=== PATIENT | male | born 1985 | race Caucasian/White ===

== ENCOUNTER 2017-08-29 11:07 | Emergency (ER) | payer BC, MEDICAID, OTHER ==
[2017-08-29] MEDS ORDERED: Penicillin VK TAB* 250 MG PO ONE (11:48)
[2017-08-29 12:23] LABS: ABS Basophils 0.1 10^3/ul (0-0.2); ABS Eosinophils 0.2 10^3/ul (0-0.6); ABS Lymphocytes 2.8 10^3/ul (1.0-4.8); ABS Monocytes 0.4 10^3/ul (0-0.8); ABS Neutrophils 3.6 10^3/ul (1.5-7.7); ABS Nucleated RBC 0 10^3/ul; Eosinophil % 2.9 % (0-6); Hematocrit 40 % (42-52); Hemoglobin 13.8 g/dl (14.0-18.0); Lymphocyte % 39.8 % (25-47); Mean Corpuscular HGB Conc 35 g/dl (31-36); Mean Corpuscular Hemoglobin 31 pg (27-31); Mean Corpuscular Volume 89 fL (80-94); Mean Platelet Volume 5.9 um3 (7.4-10.4); Nucleated Red Blood Cells % 0; Platelet Count 383 10^3/ul (150-450); Red Blood Count 4.49 10^6/ul (4.0-5.4); Red Cell Distribution Width 14 % (10.5-15); White Blood Count 7.1 10^3/ul (3.5-10.8)
[2017-08-29 12:44] LABS: Urine Appearance Clear; Urine Blood Negative (Negative); Urine Color Yellow; Urine Ketones Negative (Negative); Urine Protein Negative (Negative); Urine Specific Gravity 1.021 (1.010-1.030); Urine Urobilinogen Negative (Negative)
[2017-08-29 12:45] LABS: EGFR Non-African American 94.8 (>60)
[2017-08-29] MEDS ORDERED: Acetaminophen TAB* 325 MG PO ONE (13:25)
--- NOTE | 2017-08-29 18:31 | ED ---
Niraj Warren Jennifer, scribed for Zohaib Parker MD on 08/29/17 at 1154 . Psychiatric Complaint - HPI Summary HPI Summary: The patient is a 32 year old who was brought in from [facility] for depression and anxiety. The patient states hes been coming off heroin, meth, and windy, his brother in June, and his kids were taken away from him, and he doesnt know how to deal with it all. He left detention six days ago and has been trying to get his life together. He reports [facility] wont give him the medications he used to take, including Zoloft, Ritalin, Tenex, and Wellbutrin. He started on Suboxone today. The patient denies SI. - History Of Current Complaint Chief Complaint: EDMentalHealth Time Seen by Provider: 08/29/17 11:16 Hx Obtained From: Patient Onset/Duration: Gradual Onset, Still Present, Worse Since - six days ago, Other - Began heroin at 15 years of age Timing: Constant Severity Initially: Severe Severity Currently: Severe Character: Depressed, Anxious Aggravating Factor(s): Recent Stress - Kids taken away from him, Drug Use Alleviating Factor(s): Medication - Suboxone Related History: Positive For: Drug Abuse Counseling Has Suicidal: Denies: Thoughts, With A Plan, Demonstrates Gesture, Has Prior Attempt(s) Has Homicidal: Denies: Thoughts, With A Plan, Demonstrates Gesture, Has Prior Attempt(s) - Allergies/Home Medications Allergies/Adverse Reactions: Allergies Allergy/AdvReac Type Severity Reaction Status Date / Time No Known Allergies Allergy Verified 04/09/13 18:45 Home Medications: Home Medications Buprenorphine/Naloxone SL TAB* [Suboxone 8-2 mg SL TAB*] 2 tab.sl SL DAILY 08/29 [History Confirmed 08/29/17] Gabapentin CAP(*) [Neurontin 300 CAP(*)] 600 mg PO TID 08/29/17 [History Confirmed 08/29/17] Nicotine GUM* 2 mg PO QID PRN 08/29/17 [History Confirmed 08/29/17] Nicotine PATCH 14 MG/24 HR* 14 mg TRANSDERM DAILY 08/29/17 [History Confirmed ] buPROPion TAB* [Wellbutrin TAB*] 75 mg PO BID 08/29/17 [History Confirmed ] cloNIDine TAB* [Catapres 0.1 MG TAB*] 0.1 mg PO Q6H PRN 08/29/17 [History Confirmed 08/29/17] traZODone TAB* [Desyrel TAB*] 150 mg PO BEDTIME 08/29/17 [History Confirmed 07/14] PMH/Surg Hx/FS Hx/Imm Hx Endocrine/Hematology History: Denies: Hx Diabetes, Hx Thyroid Disease Cardiovascular History: Denies: Hx Congestive Heart Failure, Hx Hypertension Respiratory History: Denies: Hx Asthma, Hx Chronic Obstructive Pulmonary Disease (COPD) GI History: Denies: Hx Ulcer Neurological History: Reports: Other Neuro Impairments/Disorders - bipolar Psychiatric History: Reports: Hx Anxiety, Hx Attention Deficit Hyperactivity Disorder, Hx Depression, Other Psychiatric Issues/Disorders - Hx ODD - Surgical History Surgery Procedure, Year, and Place: Jaw wired. Hx Anesthesia Reactions: No Infectious Disease History: No Infectious Disease History: Denies: Hx Hepatitis, Hx Human Immunodeficiency Virus (HIV), Traveled Outside the [place] in Last 30 Days - Family History Known Family History: Negative: Renal Disease - Social History Substance Use Type: Reports: Heroin, Other - Meth, Windy Review of Systems Negative: Fever Positive: Anxious, Depressed All Other Systems Reviewed And Are Negative: Yes Physical Exam - Summary Physical Exam Summary: Appearance: Well appearing, no pain distress Skin: warm, dry, reflects adequate perfusion, Nicotine patch on left arm Head/face: normal Eyes: pupils mid range ENT: Erosive gingivitus around incisors of lower jaw, moist mucous membranes, normal Neck: supple, non-tender Respiratory: CTA, breath sounds present Cardiovascular: Tachycardic, regular rhythm, pulses symmetrical Abdomen: non-tender, soft Bowel Sounds: present Musculoskeletal: normal, strength/ROM intact Neuro: normal, sensory motor intact, A&Ox3 Triage Information Reviewed: Yes Vital Signs On Initial Exam: Initial Vitals Temp Pulse Resp BP Pulse Ox 99 F 119 16 163/93 94 08/29/17 11:27 08/29/17 11:27 08/29/17 11:27 08/29/17 11:27 08/29/17 11:27 Vital Signs Reviewed: Yes Diagnostics - Vital Signs Vital Signs Temp Pulse Resp BP Pulse Ox 08/29/17 11:27 99 F 119 16 163/93 94 - Laboratory Lab Results: Lab Results 08/29/17 08/29/17 08/29/17 Range/Units 12:02 12:02 12:13 WBC 7.1 (3.5-10.8) 10^3/ul RBC 4.49 (4.0-5.4) 10^6/ul Hgb 13.8 L (14.0-18.0) g/dl Hct 40 L (42-52) % MCV 89 (80-94) fL MCH 31 (27-31) pg MCHC 35 (31-36) g/dl RDW 14 (10.5-15) % Plt Count 383 (150-450) 10^3/ul MPV 5.9 L (7.4-10.4) um3 Neut % (Auto) 50.3 (38-83) % Lymph % (Auto) 39.8 (25-47) % [place] % (Auto) 6.2 (0-7) % Eos % (Auto) 2.9 (0-6) % Baso % (Auto) 0.8 (0-2) % Absolute Neuts (auto) 3.6 (1.5-7.7) 10^3/ul Absolute Lymphs (auto) 2.8 (1.0-4.8) 10^3/ul Absolute Monos (auto) 0.4 (0-0.8) 10^3/ul Absolute Eos (auto) 0.2 (0-0.6) 10^3/ul Absolute Basos (auto) 0.1 (0-0.2) 10^3/ul Absolute Nucleated RBC 0 10^3/ul Nucleated RBC % 0 Sodium (139-145) mmol/L Potassium (3.5-5.0) mmol/L Chloride (101-111) mmol/L Carbon Dioxide (22-32) mmol/L Anion Gap (2-11) mmol/L BUN (6-24) mg/dL Creatinine (0.67-1.17) mg/dL Est GFR ( Amer) (>60) Est GFR (Non-Af Amer) (>60) BUN/Creatinine Ratio (8-20) Glucose (70-100) mg/dL Calcium (8.6-10.3) mg/dL Total Bilirubin (0.2-1.0) mg/dL AST (13-39) U/L ALT (7-52) U/L Alkaline Phosphatase (34-104) U/L Total Protein (6.4-8.9) g/dL Albumin (3.2-5.2) g/dL Globulin (2-4) g/dL Albumin/Globulin Ratio (1-3) TSH (0.34-5.60) mcIU/mL Urine Color Yellow Urine Appearance Clear Urine pH 6.0 (5-9) Ur Specific [place] 1.021 (1.010-1.030) Urine Protein Negative (Negative) Urine Ketones Negative (Negative) Urine Blood Negative (Negative) Urine Nitrate Negative (Negative) Urine Bilirubin Negative (Negative) Urine Urobilinogen Negative (Negative) Ur Leukocyte Esterase Negative (Negative) Urine Glucose Negative (Negative) Urine Ascorbic Acid * A (Negative) Salicylates (<30) mg/dL Urine Opiates Screen None detected (None Detect) Acetaminophen mcg/mL Ur Barbiturates Screen None detected (None Detect) Ur Phencyclidine Scrn None detected (None Detect) Ur Amphetamines Screen None detected (None Detect) U Benzodiazepines Scrn None detected (None Detect) Urine Cocaine Screen None detected (None Detect) U Cannabinoids Screen None detected (None Detect) Serum Alcohol (<10) mg/dL Hepatitis C Antibody (Nonreactive) 08/29/17 08/29/17 Range/Units 12:13 12:13 WBC (3.5-10.8) 10^3/ul RBC (4.0-5.4) 10^6/ul Hgb (14.0-18.0) g/dl Hct (42-52) % MCV (80-94) fL MCH (27-31) pg MCHC (31-36) g/dl RDW (10.5-15) % Plt Count (150-450) 10^3/ul MPV (7.4-10.4) um3 Neut % (Auto) (38-83) % Lymph % (Auto) (25-47) % [place] % (Auto) (0-7) % Eos % (Auto) (0-6) % Baso % (Auto) (0-2) % Absolute Neuts (auto) (1.5-7.7) 10^3/ul Absolute Lymphs (auto) (1.0-4.8) 10^3/ul Absolute Monos (auto) (0-0.8) 10^3/ul Absolute Eos (auto) (0-0.6) 10^3/ul Absolute Basos (auto) (0-0.2) 10^3/ul Absolute Nucleated RBC 10^3/ul Nucleated RBC % Sodium 139 (139-145) mmol/L Potassium 4.9 (3.5-5.0) mmol/L Chloride 105 (101-111) mmol/L Carbon Dioxide 28 (22-32) mmol/L Anion Gap 6 (2-11) mmol/L BUN 20 (6-24) mg/dL Creatinine 0.93 (0.67-1.17) mg/dL Est GFR ( Amer) 121.9 (>60) Est GFR (Non-Af Amer) 94.8 (>60) BUN/Creatinine Ratio 21.5 H (8-20) Glucose 110 H (70-100) mg/dL Calcium 9.6 (8.6-10.3) mg/dL Total Bilirubin 0.40 (0.2-1.0) mg/dL AST 27 (13-39) U/L ALT 46 (7-52) U/L Alkaline Phosphatase 110 H (34-104) U/L Total Protein 7.6 (6.4-8.9) g/dL Albumin 4.6 (3.2-5.2) g/dL Globulin 3.0 (2-4) g/dL Albumin/Globulin Ratio 1.5 (1-3) TSH 4.92 (0.34-5.60) mcIU/mL Urine Color Urine Appearance Urine pH (5-9) Ur Specific [place] (1.010-1.030) Urine Protein (Negative) Urine Ketones (Negative) Urine Blood (Negative) Urine Nitrate (Negative) Urine Bilirubin (Negative) Urine Urobilinogen (Negative) Ur Leukocyte Esterase (Negative) Urine Glucose (Negative) Urine Ascorbic Acid (Negative) Salicylates < 2.50 (<30) mg/dL Urine Opiates Screen (None Detect) Acetaminophen < 15 mcg/mL Ur Barbiturates Screen (None Detect) Ur Phencyclidine Scrn (None Detect) Ur Amphetamines Screen (None Detect) U Benzodiazepines Scrn (None Detect) Urine Cocaine Screen (None Detect) U Cannabinoids Screen (None Detect) Serum Alcohol < 10 (<10) mg/dL Hepatitis C Antibody High reactive A (Nonreactive) Result Diagrams: 08/29/17 12:13 08/29/17 12:13 Lab Statement: Any lab studies that have been ordered have been reviewed, and results considered in the medical decision making process. Course/Dx - Course Course Of Treatment: Patient with polysubstance abuse in the past and recently started on Suboxone. Now in drug/alcohol rehabilitation after being discharged from detention. Multiple adjustment issues including dealing with having his children taken away. Medically cleared here and psychiatric evaluation underway. He will be signed out to oncoming ER physician until disposition is achieved. - Differential Dx/Clinical Impression Differential Diagnosis/HQI/PQRI: Positive: Anxiety, Depression, Other - Adjustment disorder, mood disorder. Negative: Homicidal Ideation, Homicidal Gesture, Suicidal Ideation, Suicidal Gesture Provider Diagnosis: Mood disorder, Adjustment disorder with anxious mood Discharge - Sign-Out/Discharge Documenting (check all that apply): Sign-Out Patient Signing out patient TO: Edwin Su - Discharge Plan Condition: Stable Referrals: Kayleigh Rosario MD [Medical Doctor] - - Billing Disposition and Condition Condition: STABLE The documentation as recorded by the Niraj crow Jennifer accurately reflects the service I personally performed and the decisions made by , Zohaib Parker MD.
[2017-08-29 19:27] VITALS: BP 151/78
--- NOTE | 2017-08-30 03:40 | ED ---
Heraclio Warren Thomas, scribed for Edwin Su MD on 08/29/17 at 1919 . Progress - Progress Note Progress Note: The patient is a sign out from Dr. Parker, pending disposition. Course/Dx - Course Course Of Treatment: The patient will be discharged back to [facility] at the recommendation of Dr. Syed. The evaluators will do the discharge. - Diagnoses Provider Diagnoses: Depression - Provider Notifications Discussed Care Of Patient With: Santos Syed Time Discussed With Above Provider: 19:17 Instructed by Provider To: Other - Dr. Syed, psychiatry, spoke with the evalutors. He recommends discharging the patient to [facility]. Discharge - Sign-Out/Discharge Documenting (check all that apply): Discharge/Admit/Transfer - patient will be discharged back to [facility], Receiving Sign-Out Receiving patient FROM: Zohaib Parker - Discharge Plan Condition: Stable Disposition: PSYCHIATRIC FACILITY-OTHER Referrals: Kayleigh Rosario MD [Medical Doctor] - The documentation as recorded by the Heraclio crow Thomas accurately reflects the service I personally performed and the decisions made by Georges cerrato Abdul, MD.
== END 2017-08-29 19:34 ==
LOC: ED 11:07
DX: F39 Unspecified mood [affective] disorder (principal); F43.22 Adjustment disorder with anxiety; F31.9 Bipolar disorder, unspecified
CPT/HCPCS: 36415; 80053; 80307; 80320; 80329; 81003; 84443; 85025; 86803; 99284; A9270-GY; G0480

== ENCOUNTER 2021-08-23 16:21 | Observation (INO) ==
[2021-08-24 00:37] LABS: ABS Basophils 0.1 10^3/ul (0-0.2); ABS Eosinophils 0.3 10^3/ul (0-0.6); ABS Lymphocytes 2.6 10^3/ul (1.0-4.8); ABS Monocytes 0.6 10^3/ul (0-0.8); ABS Neutrophils 3.1 10^3/ul (1.5-7.7); Eosinophil % 5.2 %; Hematocrit 35 % (42-52); Lymphocyte % 39.3 %; Mean Corpuscular HGB Conc 34 g/dL (31-36); Mean Corpuscular Hemoglobin 30 pg (27-31); Mean Corpuscular Volume 88 fL (80-94); Mean Platelet Volume 6.2 fL (7.4-10.4); Nucleated Red Blood Cells % 0.1; Platelet Count 397 10^3/uL (150-450); Red Blood Count 4.03 10^6 /uL (4.18-5.48); Red Cell Distribution Width 14 % (10-15); White Blood Count 6.7 10^3/uL (3.5-10.8)
[2021-08-24 00:57] LABS: Albumin 3.4 g/dL (3.2-5.2); Albumin/Globulin Ratio 1.1 (1-3); C Reactive Protein 70.71 mg/L (<8.01); Calcium 8.8 mg/dL (8.6-10.3); Globulin 3.2 g/dL (2-4); Potassium 3.9 mmol/L (3.5-5.0); Total Bilirubin 0.2 mg/dL (0.2-1.0); Total Protein 6.6 g/dL (6.4-8.9); eGFR CKD-EPI 121.7 (>60)
[2021-08-24] MEDS ORDERED: Piperacillin/Tazobac ADVAN 3.375 GM in NS 0.9% 100 ml BAG 100 ML IV ONE (01:13)
[2021-08-24] MEDS ORDERED: Vancomycin 1,000 MG in NS 0.9% 250 ml 250 ML IVPB ONE (01:13)
[2021-08-24] MEDS ORDERED: Magnesium Hydroxide LIQ 30 ML UDC PO PRN (04:47)
[2021-08-24] MEDS ORDERED: Polyethylene Glycol 3350 17 GM PACKET PO PRN (04:47)
[2021-08-24] MEDS ORDERED: Senna TAB 8.6 mg TAB PO PRN (04:47)
[2021-08-24 07:33] LABS: HIV 4th Generation Nonreactive (Nonreactive)
[2021-08-24] MEDS ORDERED: cefTRIAXone 1 gm/50 mL D5W 1 GM/50 ML BAG IV SCH (08:00)
[2021-08-24] MEDS ORDERED: cefTRIAXone 1 GM Q24H (Pharmacy Admix) IVPB SCH (08:00)
[2021-08-24] MEDS ORDERED: Vancomycin per Pharmacy 1 EA NOTE FOLLOW UP SCH (09:00)
[2021-08-24] MEDS: Enoxaparin 40 MG/0.4 ML SYR SUBCUT SCH (10:04)
[2021-08-24] MEDS: Polyethylene Glycol 3350 17 GM PACKET PO SCH (10:28)
[2021-08-24] MEDS: Vancomycin 1,250 MG in NS 0.9% 250 ml 250 ML IVPB SCH (17:49)
[2021-08-24] MEDS ORDERED: Senna TAB 8.6 mg TAB PO SCH (21:00)
[2021-08-25] MEDS: Nicotine GUM 4MG FRUIT FLAVOR PO PRN ×2 (05:59→09:35)
[2021-08-25] MEDS: Vancomycin 1,250 MG in NS 0.9% 250 ml 250 ML IVPB SCH (05:59)
[2021-08-25] MEDS ORDERED: Nicotine PATCH 21 MG/24 HR PATCH TRANSDERM SCH (08:00)
[2021-08-25] MEDS: Enoxaparin 40 MG/0.4 ML SYR SUBCUT SCH ×2 (09:30→09:38)
[2021-08-25] MEDS: Polyethylene Glycol 3350 17 GM PACKET PO SCH (09:38)
[2021-08-25 09:39] LABS: Hematocrit 36 % (42-52); Hemoglobin 11.9 g/dL (14.0-18.0); Mean Corpuscular HGB Conc 33 g/dL (31-36); Mean Corpuscular Hemoglobin 29 pg (27-31); Mean Corpuscular Volume 88 fL (80-94); Mean Platelet Volume 6.1 fL (7.4-10.4); Platelet Count 407 10^3/uL (150-450); Red Blood Count 4.12 10^6 /uL (4.18-5.48); Red Cell Distribution Width 14 % (10-15); White Blood Count 6.3 10^3/uL (3.5-10.8)
[2021-08-25 10:26] LABS: Calcium 8.8 mg/dL (8.6-10.3); Potassium 4.6 mmol/L (3.5-5.0); eGFR CKD-EPI 119.7 (>60)
[2021-08-25 10:44] LABS: Ferritin 53.3 ng/mL (24-336)
[2021-08-25 11:03] VITALS: BP 116/62
[2021-08-26] MEDS ORDERED: Vancomycin Trough Check NOTE FOLLOW UP ONE (05:30)
== END 2021-08-25 12:20 | disposition home or self-care (01) ==
LOC: ED 16:21 → EDHOLD 16:21 → SUATTDRO 08-24 03:31 → MED 08-24 08:33
PROVIDERS: ADMIT Internal Medicine; ATTEND Internal Medicine

== ENCOUNTER 2022-02-11 22:52 | Observation (INO) ==
[2022-02-12 01:26] LABS: ABS Basophils 0.1 10^3/ul (0-0.2); ABS Eosinophils 0.3 10^3/ul (0-0.6); ABS Lymphocytes 2.6 10^3/ul (1.0-4.8); ABS Monocytes 0.7 10^3/ul (0-0.8); ABS Neutrophils 5.4 10^3/ul (1.5-7.7); Eosinophil % 3.8 %; Hematocrit 31 % (42-52); Hemoglobin 10.2 g/dL (14.0-18.0); Lymphocyte % 28.4 %; Mean Corpuscular HGB Conc 34 g/dL (31-36); Mean Corpuscular Hemoglobin 28 pg (27-31); Mean Corpuscular Volume 84 fL (80-94); Mean Platelet Volume 5.9 fL (7.4-10.4); Platelet Count 421 10^3/uL (150-450); Red Blood Count 3.62 10^6 /uL (4.18-5.48); Red Cell Distribution Width 14 % (10-15); White Blood Count 9.1 10^3/uL (3.5-10.8)
[2022-02-12 01:35] LABS: Activated Partial Thrombo Time 36.7 seconds (26.0-38.0); INR 1.02 (0.89-1.11)
[2022-02-12 02:08] LABS: Albumin 3.3 g/dL (3.2-5.2); Albumin/Globulin Ratio 0.8 (1-3); C Reactive Protein 65.82 mg/L (<8.01); Calcium 8.5 mg/dL (8.6-10.3); Globulin 3.9 g/dL (2-4); Potassium 3.5 mmol/L (3.5-5.0); Total Bilirubin 0.4 mg/dL (0.2-1.0); Total Protein 7.2 g/dL (6.4-8.9); eGFR CKD-EPI 119.5 (>60)
[2022-02-12 02:54] LABS: High Sensitivity Troponin 1 Hr < 3 pg/mL (<20)
[2022-02-12] MEDS ORDERED: Vancomycin 1,250 MG in NS 0.9% 250 ml 250 ML IVPB ONE (03:11)
[2022-02-12] MEDS ORDERED: Cefepime 2 GM in Dextrose 2 GM/50 ML BAG IV ONE (03:13)
[2022-02-12] MEDS ORDERED: NS 0.9% 1000 ml BAG 1,000 ML IV SCH (03:15)
[2022-02-12] MEDS ORDERED: Vancomycin per Pharmacy 1 EA NOTE FOLLOW UP SCH (04:00)
[2022-02-12] MEDS ORDERED: Enoxaparin 40 MG/0.4 ML SYR SUBCUT SCH (06:00)
[2022-02-12] MEDS ORDERED: Nicotine GUM 4MG FRUIT FLAVOR PO PRN (11:12)
[2022-02-12] MEDS ORDERED: Vancomycin 1,250 MG in NS 0.9% 250 ml 250 ML IVPB SCH (13:00)
[2022-02-12 13:15] VITALS: BP 114/72
[2022-02-12] MEDS ORDERED: Cefepime 2 GM in Dextrose 2 GM/50 ML BAG IV SCH (16:00)
[2022-02-13] MEDS ORDERED: Vancomycin Trough Check NOTE FOLLOW UP ONE (12:30)
== END 2022-02-12 14:02 | disposition home or self-care (01) ==
LOC: EDHOLD 22:52 → ED 22:52 → SUATTDRO 02-12 03:07 → EDHOLD 02-12 14:01
PROVIDERS: ADMIT Internal Medicine; ATTEND Internal Medicine